=== PATIENT | female | born 1975 | race Caucasian/White ===

== ENCOUNTER → 2019-12-09 10:51 | Outpatient (CLI) | payer OTHER, SELFPAY ==
--- NOTE | 2019-12-09 | DI.RAD.S_ITS ---
PROCEDURE: XR LUMBAR SPINE 2-3V INDICATIONS: rectal pain TECHNIQUE: 3 views of the lumbar spine were acquired. COMPARISON: [facility], CR, XR SACRUM COCCYX MIN 2V, 12/09/2019, 10:42. FINDINGS: Bones: 5 [id number] vertebrae are present. There is minimal retrolisthesis at L3-L4. Mild grade 1 anterolisthesis is seen at the L4-L5 level. There is otherwise normal bony alignment. No vertebral body compression fractures. No suspicious bony lesions. The disc heights are relatively well preserved. Endplate irregularity and sclerosis are seen at L4-5. Lower lumbar spine facet arthropathy is seen. Soft tissues: Overlying bowel gas pattern is normal. No suspicious soft tissue calcifications. IMPRESSION: Lower lumbar spine degenerative changes are seen, which are worst at the L4-5 level. If it would be helpful for clinical management decision making, please consider a dedicated lumbar spine MRI for further evaluation (assuming that there is no contraindication). Dictated by: Jimy Ortiz M.D. on 12/09/2019 at 11:57 Approved by: Jimy Ortiz M.D. on 12/09/2019 at 11:58
--- NOTE | 2019-12-09 | DI.RAD.S_ITS ---
PROCEDURE: XR SACRUM COCCYX MIN 2V INDICATIONS: rectal pain TECHNIQUE: 3 views of the sacrum and coccyx acquired. COMPARISON: [facility], CR, XR LUMBAR SPINE 2-3V, 12/09/2019, 10:42. FINDINGS: Bones: No fractures or dislocations. No suspicious bony lesions. Age-appropriate lower lumbar spine degenerative changes are noted. Soft tissues: Visualized bowel gas pattern is normal. No suspicious soft tissue densities. Pelvic phleboliths are incidentally noted. IMPRESSION: Normal plain films of the sacrum and coccyx. Dictated by: Jimy Ortiz M.D. on 12/09/2019 at 11:56 Approved by: Jimy Ortiz M.D. on 12/09/2019 at 11:56
== END ==
PROVIDERS: Family Provider Family Medicine; PCP Family Medicine; Referring Provider Family Medicine; Visit Provider Family Medicine
DX: K62.89 Other specified diseases of anus and rectum (principal); M47.816 Spondylosis without myelopathy or radiculopathy, lumbar region; M43.16 Spondylolisthesis, lumbar region
CPT/HCPCS: 72100; 72220

== ENCOUNTER 2020-01-06 09:45 | Outpatient (RCR) | payer OTHER, SELFPAY ==
--- NOTE | 2019-12-10 14:11 | PT.OIE ---
Current Diagnoses Other specified diseases of anus and rectum (12/09/19) Visit Care Team Role Provider Type Mariza Boogie MD Attending Provider Physician Family Provider Primary Care Provider Referring Provider Specialty: Family Practice Address: [address] [place] [address], [facility] Email: Physical Therapy Initial Evaluation PT-OP-A Visit Information Start: 12/09/19 09:44 Freq: Status: Active Protocol: Document 12/09/19 09:45 [facility] (Rec: 12/09/19 10:05 [facility] [id number]) Out-Patient Physical Therapy Visit Information Visit Information Visit Type Initial Evaluation Visit Start Time 09:45 Visit Stop Time 10:30 Total Visit Minutes 45 Visit Number 1 Evaluation Information Evaluation Date 12/09/19 PT-OP-B Current Condition Start: 12/09/19 09:44 Freq: Status: Active Protocol: Document 12/09/19 09:45 [facility] (Rec: 12/09/19 10:05 [facility] [id number]) Current Condition History of Current Condition Onset Date approx 3.5 years ago Current Complaints rectal pain, left side radiating pain History of Current Condition Kiersten is a 44 year old female with complaints of rectal pain and spasm with clitorally stimulated orgasm. She has a 5 year old daughter and reports her symptoms didn't start initially after post but a year and half later. She started using a diva cup around that time. The first time she experience pain it happened in respose to a clitoral orgasm. Pain is described as being in the rectum and anus and very intense. She reports the pain would follow her orgasm and then pain keep increasing for about a half hour. She has fainted from the intensity of the pain. If there is vaginal penetration with orgasm then the pain doesn't happen. She has experienced the pain x 3 times since then. It is only rectally and it will make her feel like she needs to have a bowel movement. She is a runner and sometimes her pain will come on running, if she stops and sits down the symptoms will stop. This has only happened a few times. Most recently she woke up with the sensation of the rectal pain as well as left sided sciatic symptoms and up her left side. She didn't pass out and eventually went back to sleep. She does have lower back pain that she has had for years. Vaginal , smooth , she did have some left sided pelvic pain and SI pain and did post PT which helped. At this point she is seeking PT consult as she does not want the pain to increase and when she woke up in the middle of the night with pain it alarmed her. Prior Treatments and Tests A spinal Xray was ordered. Future Testing and Treatments Planned MRI may be ordered for further work up Treatment Goals Patient/Caregiver Goals Kiersten's goals include decreasing c/o pelvic pain and preventing further episodes from occurring Prior Functional Status Baseline Function- ADL's Independent Baseline Function- Mobility Independent Current Functional Impairments (Reported) Functional Limitations- Other limited with running activities due to pelvic pain, rectal pain with clitoral orgasm, rectal spasms and sciatica waking her at night PT-OP-I Pelvic Floor Start: 12/09/19 09:44 Freq: Status: Active Protocol: Document 12/09/19 09:45 [facility] (Rec: 12/10/19 13:16 [facility] [id number]) Pelvic Floor Assessment Urine Pelvic Floor Surgery No Pelvic Clock Pelvic Clock 3-6 Guarding Contraction Ability Voluntary Contraction Weak Voluntary Relaxation Weak Manual Muscle Testing Left 3 Manual Muscle Testing Right 3 Manual Muscle Testing Anterior 3 Manual Muscle Testing Posterior 3 Muscle Endurance (Seconds) 5 Comments Pelvic Floor Comments Kiersten has guarding on the left side of her illiococcygeus, she has difficulting relaxing following a contraction as well as difficulty sustaining a contraction for more than 4- 5 seconds. PT-OP-J Posture/Palpation/Skin Start: 12/09/19 09:44 Freq: Status: Active Protocol: Document 12/09/19 09:45 [facility] (Rec: 12/10/19 13:19 [facility] [id number]) Palpation Assessment Location Two Palpation Location left SI joint and iliac crest Palpation Findings Tenderness Palpation Details tenderness to palpation at the left PSIS and iliac crest One Palpation Location left illiococcygeus Palpation Findings Muscle Guarding Palpation Details there is muscle guarding present on the left lateral wall of the levator ani from 3 -6, there was a region that felt like scar tissue to me on the left lateral wall that I called Dr. Boogie about. I am not sure if this could be irritating the pundendal neve or not? PT-OP-K Range of Motion Start: 12/10/19 13:34 Freq: Status: Active Protocol: Document 12/09/19 09:45 [facility] (Rec: 12/10/19 13:40 [facility] [id number]) Hip Goniometric Range of Motion Hip ROM Limitations Hip ROM Limitations Soft Tissue Tightness Comments left sided hip ER tightness, increased tightness in the left piriforms and obturator internus as compared to the right PT-OP-L Special Tests Start: 12/09/19 09:44 Freq: Status: Active Protocol: Document 12/09/19 09:45 [facility] (Rec: 12/10/19 13:24 [facility] [id number]) Special Tests Lumbar Spine Special Tests Straight Leg Raise Test Results slightly+ left Comments More dural tension found with SLR on the left Slump Test Results positive on the left Comments this brought on small amounts of dural tension,no reproduction of rectal sx PT-OP-Q Treatments Start: 12/09/19 09:44 Freq: Status: Active Protocol: Document 12/09/19 09:45 [facility] (Rec: 12/10/19 13:24 [facility] [id number]) Therapeutic Exercises Supine Exercises 3 Supine Exercise Name supine pelvic floor contract relax Reps/Minutes hold 5-10 seconds then relax 10-20 seconds 2 Supine Exercise Name happy baby Side bilateral Reps/Minutes 1-2 reps holding for 1-2 minutes each 1 Supine Exercise Name diaphragmatic breathing Reps/Minutes x 10 reps inhale 4 counts and exhale 6 counts Comments pt educated in pelvic floor/ diaphragmatic rhythm PT-OP-T Assessment and Plan Start: 12/09/19 09:44 Freq: Status: Active Protocol: Document 12/09/19 09:45 [facility] (Rec: 12/10/19 14:11 [facility] [id number]) Physical Therapy Assessment Rehab Potential Rehabilitation Potential Good Evaluation Complexity Number of Personal Factors/Comorbidities 0 Number of Body Systems Impaired 1-2 Clinical Presentation at Evaluation Stable Impairments Impairments Pain,Sensation,Soft Tissue Mobility,Strength Goals Three Impairment c/o rectal pain and spasm with Custodial Goal (LTG) Kiersten is no longer experiencing rectal pain and spams with running or with clitoral orgasm. LTG Duration 8 weeks Two Impairment Decreased endurance of the pelvic floor Custodial Goal (LTG) Kiersten is able to sustain a contraction of the levator ani for 10 seconds followed by 10 second relaxation for 10 reps without complaints of pain LTG Duration 8 weeks One Impairment Left sided iliococcygeus guarding and discoordination Short Term Goal (STG) Kiersten is educated on relaxed awareness of the pelvic floor and postural techniques to reduce pelvic floor tone with day to day activities. STG Duration 4 weeks Hvac/R Instructor Goal (LTG) Kiersten is able to fully relax her pelvic floor and has no tenderness to palpation on the left lateral wall of the levator ani LTG Duration 8 weeks Assessment Summary Assessment Kiersten presents to physical therapy today with c/o intermittent rectal pain and left sided radiating sciatic pain symptoms. Kiersten is 5 years post from a vaginal delivery. She reports having a vaginal delivery with no complications and only a few stitches. She began having symtoms of rectal pain approx a year post . The first time she experienced rectal pain was with clitoral stimulation and orgasm. She notes the pain began initially with orgasm and then progressed in intensity for approximately 1/2 hours. Kiersten states the pain was so intense that she fainted. Since then she has experienced this same symptom 3 times with clitoral orgasm. She reports a vaginal orgasm with penetration with her does not give her any symptoms of nerve pain. She has also experienced rectal symptoms with running and she will have to stop running and sit down to stop the pain. Recently and what brought her into the clinic for her symptoms was that she woke up in the middle of the night with rectal pain and c/o radiating pain all down her left LE. She states this eventually went away and she has not experienced this symptom yet again. With examination today, Kiersten has tightness on the left side of the levator ani from 3-6 on the pelvic clock as compared to her right. She has difficulty relaxing her levator ani following a contraction. She also has difficutly sustaining a contraction for greater than 4 -5 seconds with her levator ani on either side of the pelvic clock. She is limited with hip ER on the left and has tenderness at the left PSIS and pelvic crest. She did note following child she had PT for left sided SI pain symptoms. This did seem to get better but she notes she always has a low level of low back and SI pain. I also found a area of what felt like possibly scar tissue on the left lateral wall of the illiococcygeus on the left that I wanted Dr. Boogie to evaluate as well. Kiersten did have a slightly positive slump test and SLR test on the left as compared to her right so it does appear she has more dural tension on the left. I palpated medial to the ischial tuberosity on the left to test for pudendal nerve tenderness and this region did not reproduce pain. Kiersten would benefit from a rectal evaluation next visit to further evaluate her symptoms. It is possible the the brach off the pudendal nerve that goes to the clitoris (the dorsal nerve of the clitoris) is somehow creating tension on the rectal portion of the pudendal nerve with clitoral stimulation only. Treatment will focus on relaxing the guarding of the left side of the illiococcygeus, teaching Kiersten how to stretch her posterior pelvic floor, pelvic floor coordination and training to improve endurance without muscle guarding, SI stabilization exercises, improving hip ER on the left, and MFR techniques for the pelvic floor. I did start Kiersten today with diaphragmatic breathing exercises to help relax the pelvic floor, happy baby stretch for pelvic floor relaxation, and gently contract relax exercises. We will start her with EMG biofeedback for improved neuro awareness of her pelvic floor. Physical Therapy Plan Frequency and Duration Frequency of Treatment 1x/Week Duration of Treatment 8 Plan of Care Start Date 12/09/19 Plan of Care End Date 02/03/20 Therapeutic Interventions Therapeutic Interventions Home Exercise Program,Manual Therapy,Neuromuscular Re- education,Patient/Caregiver Education,Self-Care/Home Management,Soft Tissue Mobilization,Therapeutic Exercises Modalities Biofeedback Next Visit Focus/Plan Next Note Type Treatment Note Next Visit Plan Begin EMG biofeedback for neuro awareness of the pelvic floor and to help with resting tone, continue evaluation with rectal examination of the levator ani musculature
--- NOTE | 2019-12-16 10:51 | PT.OTN ---
Current Diagnoses Other specified diseases of anus and rectum (12/16/19) Physical Therapy Treatment Note PT-OP-A Visit Information Start: 12/09/19 09:44 Freq: Status: Active Protocol: Document 12/16/19 09:45 [facility] (Rec: 12/16/19 09:53 [facility] [id number]) Out-Patient Physical Therapy Visit Information Visit Information Visit Type Treatment Note Visit Start Time 09:00 Visit Stop Time 09:45 Total Visit Minutes 45 Visit Number 2 Evaluation Information Evaluation Date 12/09/19 PT-OP-B Current Condition Start: 12/09/19 09:44 Freq: Status: Active Protocol: Document 12/09/19 09:45 [facility] (Rec: 12/09/19 10:05 [facility] [id number]) Current Condition History of Current Condition Onset Date approx 3.5 years ago Current Complaints rectal pain, left side radiating pain History of Current Condition Kiersten is a 44 year old female with complaints of rectal pain and spasm with clitorally stimulated orgasm. She has a 5 year old daughter and reports her symptoms didn't start initially after post but a year and half later. She started using a diva cup around that time. The first time she experience pain it happened in respose to a clitoral orgasm. Pain is described as being in the rectum and anus and very intense. She reports the pain would follow her orgasm and then pain keep increasing for about a half hour. She has fainted from the intensity of the pain. If there is vaginal penetration with orgasm then the pain doesn't happen. She has experienced the pain x 3 times since then. It is only rectally and it will make her feel like she needs to have a bowel movement. She is a runner and sometimes her pain will come on running, if she stops and sits down the symptoms will stop. This has only happened a few times. Most recently she woke up with the sensation of the rectal pain as well as left sided sciatic symptoms and up her left side. She didn't pass out and eventually went back to sleep. She does have lower back pain that she has had for years. Vaginal , smooth , she did have some left sided pelvic pain and SI pain and did post PT which helped. At this point she is seeking PT consult as she does not want the pain to increase and when she woke up in the middle of the night with pain it alarmed her. Prior Treatments and Tests A spinal Xray was ordered. Future Testing and Treatments Planned MRI may be ordered for further work up Treatment Goals Patient/Caregiver Goals Kiersten's goals include decreasing c/o pelvic pain and preventing further episodes from occurring Prior Functional Status Baseline Function- ADL's Independent Baseline Function- Mobility Independent Current Functional Impairments (Reported) Functional Limitations- Other limited with running activities due to pelvic pain, rectal pain with clitoral orgasm, rectal spasms and sciatica waking her at night PT-OP-C Subjective Start: 12/09/19 09:44 Freq: Status: Active Protocol: Document 12/16/19 09:45 [facility] (Rec: 12/16/19 09:53 [facility] [id number]) OP-PT Subjective Patient Comments Patient Comments Pt reports she has been doing more breathing this week with diaphragm in mind, she reports it is hard to work up to 10 reps of her pelvic floor. The contraction is more difficult for her. PT-OP-I Pelvic Floor Start: 12/09/19 09:44 Freq: Status: Active Protocol: Document 12/16/19 10:50 [facility] (Rec: 12/16/19 10:50 [facility] [id number]) Pelvic Floor Assessment Pelvic Clock Inter-Rectal Assessment inter-rectal assessment today shows tightness along the coccy bone on the left side of the levator ani as compared to the right. PT-OP-J Posture/Palpation/Skin Start: 12/09/19 09:44 Freq: Status: Active Protocol: Document 12/09/19 09:45 [facility] (Rec: 12/10/19 13:19 [facility] [id number]) Palpation Assessment Location Two Palpation Location left SI joint and iliac crest Palpation Findings Tenderness Palpation Details tenderness to palpation at the left PSIS and iliac crest One Palpation Location left illiococcygeus Palpation Findings Muscle Guarding Palpation Details there is muscle guarding present on the left lateral wall of the levator ani from 3 -6, there was a region that felt like scar tissue to me on the left lateral wall that I called Dr. Boogie about. I am not sure if this could be irritating the pundendal neve or not? PT-OP-K Range of Motion Start: 12/10/19 13:34 Freq: Status: Active Protocol: Document 12/09/19 09:45 [facility] (Rec: 12/10/19 13:40 [facility] [id number]) Hip Goniometric Range of Motion Hip ROM Limitations Hip ROM Limitations Soft Tissue Tightness Comments left sided hip ER tightness, increased tightness in the left piriforms and obturator internus as compared to the right PT-OP-L Special Tests Start: 12/09/19 09:44 Freq: Status: Active Protocol: Document 12/09/19 09:45 [facility] (Rec: 12/10/19 13:24 [facility] [id number]) Special Tests Lumbar Spine Special Tests Straight Leg Raise Test Results slightly+ left Comments More dural tension found with SLR on the left Slump Test Results positive on the left Comments this brought on small amounts of dural tension,no reproduction of rectal sx PT-OP-Q Treatments Start: 12/09/19 09:44 Freq: Status: Active Protocol: Document 12/16/19 10:38 [facility] (Rec: 12/16/19 10:49 [facility] [id number]) Manual Therapy Treatment Soft Tissue Mobilization levator ani release on the left Body Location left sided levator ani release Comments tightness along the coccyx on the left as compared to the right as well as the coccygeus on the left Neuro Re-Education Treatment Other Activities 1 Details EMG biofeedback for pelvic floor neuro awareness Comments pt had a lot of muscle spasms but we had just finished her rectal exam so it may have been due to this. Average contraction is 9.1 uv with max of 45.3 uv and average rest of 4.1 uv. No pain with 10 second hold time. If pt performed hip IR bilaterally then this did decrease her resting tone. Self-Care/Home Management Treatment Education Other Education pt educated in use of a dilator for trigger point release and pelvic floor release PT-OP-T Assessment and Plan Start: 12/09/19 09:44 Freq: Status: Active Protocol: Document 12/16/19 10:38 [facility] (Rec: 12/16/19 10:49 [facility] [id number]) Physical Therapy Assessment Assessment Summary Assessment Today I did a rectal exam which really only showed tightness along the left side of the coccxy and Kiersten could tell this side was also tighter than the right. No other pain noted. EMG biofeedback was initiated with elevated resting tone and difficulty sustaining a pelvic floor contraction, trigger point release and MFR was performed in the levator ani on the left and pt was given a dilator for home use for trigger point release. Pt tolerated treatment well, no reproduction of nerve pain but pt did have back pain following her pelvic floor contractions. We talked about making the contractions gentle so that her back is not arching to try and help. Physical Therapy Plan Frequency and Duration Frequency of Treatment 1x/Week Duration of Treatment 8 Plan of Care Start Date 12/09/19 Plan of Care End Date 02/03/20 Therapeutic Interventions Therapeutic Interventions Home Exercise Program,Manual Therapy,Neuromuscular Re- education,Patient/Caregiver Education,Self-Care/Home Management,Soft Tissue Mobilization,Therapeutic Exercises Modalities Biofeedback Next Visit Focus/Plan Next Note Type Treatment Note Next Visit Plan reassess resting tone of the pelvic floor, trigger points and myofascial rightness on the left coccygeus. Work on endurance of the pelvic floor muscles
--- NOTE | 2019-12-23 13:56 | PT.OTN ---
Current Diagnoses Other specified diseases of anus and rectum (12/23/19) Physical Therapy Treatment Note PT-OP-A Visit Information Start: 12/09/19 09:44 Freq: Status: Active Protocol: Document 12/23/19 09:44 [facility] (Rec: 12/23/19 09:54 [facility] [id number]) Out-Patient Physical Therapy Visit Information Visit Information Visit Type Treatment Note Visit Start Time 09:45 Visit Stop Time 10:30 Total Visit Minutes 45 Visit Number 3 PT-OP-B Current Condition Start: 12/09/19 09:44 Freq: Status: Active Protocol: Document 12/09/19 09:45 [facility] (Rec: 12/09/19 10:05 [facility] [id number]) Current Condition History of Current Condition Onset Date approx 3.5 years ago Current Complaints rectal pain, left side radiating pain History of Current Condition Kiersten is a 44 year old female with complaints of rectal pain and spasm with clitorally stimulated orgasm. She has a 5 year old daughter and reports her symptoms didn't start initially after post but a year and half later. She started using a diva cup around that time. The first time she experience pain it happened in respose to a clitoral orgasm. Pain is described as being in the rectum and anus and very intense. She reports the pain would follow her orgasm and then pain keep increasing for about a half hour. She has fainted from the intensity of the pain. If there is vaginal penetration with orgasm then the pain doesn't happen. She has experienced the pain x 3 times since then. It is only rectally and it will make her feel like she needs to have a bowel movement. She is a runner and sometimes her pain will come on running, if she stops and sits down the symptoms will stop. This has only happened a few times. Most recently she woke up with the sensation of the rectal pain as well as left sided sciatic symptoms and up her left side. She didn't pass out and eventually went back to sleep. She does have lower back pain that she has had for years. Vaginal , smooth , she did have some left sided pelvic pain and SI pain and did post PT which helped. At this point she is seeking PT consult as she does not want the pain to increase and when she woke up in the middle of the night with pain it alarmed her. Prior Treatments and Tests A spinal Xray was ordered. Future Testing and Treatments Planned MRI may be ordered for further work up Treatment Goals Patient/Caregiver Goals Kiersten's goals include decreasing c/o pelvic pain and preventing further episodes from occurring Prior Functional Status Baseline Function- ADL's Independent Baseline Function- Mobility Independent Current Functional Impairments (Reported) Functional Limitations- Other limited with running activities due to pelvic pain, rectal pain with clitoral orgasm, rectal spasms and sciatica waking her at night PT-OP-C Subjective Start: 12/09/19 09:44 Freq: Status: Active Protocol: Document 12/23/19 09:44 [facility] (Rec: 12/23/19 09:54 [facility] [id number]) OP-PT Subjective Patient Comments Patient Comments HAS BEEN WORKING ON YOGA, THE DILATOR, the tighten and releasing. Kiersten feels she may be able to relax a little better but it is difficult to tell. She hasn't experienced any of the pain this week. PT-OP-I Pelvic Floor Start: 12/09/19 09:44 Freq: Status: Active Protocol: Document 12/16/19 10:50 [facility] (Rec: 12/16/19 10:50 [facility] [id number]) Pelvic Floor Assessment Pelvic Clock Inter-Rectal Assessment inter-rectal assessment today shows tightness along the coccy bone on the left side of the levator ani as compared to the right. PT-OP-J Posture/Palpation/Skin Start: 12/09/19 09:44 Freq: Status: Active Protocol: Document 12/09/19 09:45 [facility] (Rec: 12/10/19 13:19 [facility] [id number]) Palpation Assessment Location Two Palpation Location left SI joint and iliac crest Palpation Findings Tenderness Palpation Details tenderness to palpation at the left PSIS and iliac crest One Palpation Location left illiococcygeus Palpation Findings Muscle Guarding Palpation Details there is muscle guarding present on the left lateral wall of the levator ani from 3 -6, there was a region that felt like scar tissue to me on the left lateral wall that I called Dr. Boogie about. I am not sure if this could be irritating the pundendal neve or not? PT-OP-K Range of Motion Start: 12/10/19 13:34 Freq: Status: Active Protocol: Document 12/09/19 09:45 [facility] (Rec: 12/10/19 13:40 [facility] [id number]) Hip Goniometric Range of Motion Hip ROM Limitations Hip ROM Limitations Soft Tissue Tightness Comments left sided hip ER tightness, increased tightness in the left piriforms and obturator internus as compared to the right PT-OP-L Special Tests Start: 12/09/19 09:44 Freq: Status: Active Protocol: Document 12/09/19 09:45 [facility] (Rec: 12/10/19 13:24 [facility] [id number]) Special Tests Lumbar Spine Special Tests Straight Leg Raise Test Results slightly+ left Comments More dural tension found with SLR on the left Slump Test Results positive on the left Comments this brought on small amounts of dural tension,no reproduction of rectal sx PT-OP-Q Treatments Start: 12/09/19 09:44 Freq: Status: Active Protocol: Document 12/23/19 13:50 [facility] (Rec: 12/23/19 13:56 [facility] [id number]) Manual Therapy Treatment Soft Tissue Mobilization piriformis release Body Location piriformis release Comments STM/MFR along the borders of the sacral KENA and piriformis, right greater than left piriformis tightness. levator ani release on the left Body Location left sided levator ani release Comments tightness along the coccyx left side but this is reduced as compared to last visit Joint Mobilizations 2 Joint MET for sacral extension Neuro Re-Education Treatment Other Activities 1 Details EMG biofeedback for pelvic floor neuro awareness Comments Average contraction is 8.5 uv with max of 16.1 uv and average rest of 2.8 uv. No pain with 10 second hold time. SHe does get a little low back tightness towards the end PT-OP-T Assessment and Plan Start: 12/09/19 09:44 Freq: Status: Active Protocol: Document 12/23/19 13:50 [facility] (Rec: 12/23/19 13:56 [facility] [id number]) Physical Therapy Assessment Assessment Summary Assessment Improved resting tone today on EMG biofeedback, decreased pelvic floor guarding with internal exam, pt is tight along the left sacral KENA and piriformis as compared to the right. She did have improved hip ROM with her left hip today. I talked to Kiersten about added in piriformis stretches and self release with a tennis ball in the piriformis region Physical Therapy Plan Frequency and Duration Frequency of Treatment 1x/Week Duration of Treatment 8 Plan of Care Start Date 12/09/19 Plan of Care End Date 02/03/20 Therapeutic Interventions Therapeutic Interventions Home Exercise Program,Manual Therapy,Neuromuscular Re- education,Patient/Caregiver Education,Self-Care/Home Management,Soft Tissue Mobilization,Therapeutic Exercises Modalities Biofeedback Next Visit Focus/Plan Next Note Type Treatment Note Next Visit Plan review piriformis stretches, MFR over the left sacral KENA, piriformis, Eccentric control of the pelvic floor
--- NOTE | 2019-12-30 14:07 | PT.OTN ---
Current Diagnoses Other specified diseases of anus and rectum (12/30/19) Physical Therapy Treatment Note PT-OP-A Visit Information Start: 12/09/19 09:44 Freq: Status: Active Protocol: Document 12/30/19 09:44 [facility] (Rec: 12/30/19 09:55 [facility] [id number]) Out-Patient Physical Therapy Visit Information Visit Information Visit Type Treatment Note Visit Start Time 09:45 Visit Stop Time 10:30 Total Visit Minutes 45 Visit Number 4 PT-OP-B Current Condition Start: 12/09/19 09:44 Freq: Status: Active Protocol: Document 12/09/19 09:45 [facility] (Rec: 12/09/19 10:05 [facility] [id number]) Current Condition History of Current Condition Onset Date approx 3.5 years ago Current Complaints rectal pain, left side radiating pain History of Current Condition Kiersten is a 44 year old female with complaints of rectal pain and spasm with clitorally stimulated orgasm. She has a 5 year old daughter and reports her symptoms didn't start initially after post but a year and half later. She started using a diva cup around that time. The first time she experience pain it happened in respose to a clitoral orgasm. Pain is described as being in the rectum and anus and very intense. She reports the pain would follow her orgasm and then pain keep increasing for about a half hour. She has fainted from the intensity of the pain. If there is vaginal penetration with orgasm then the pain doesn't happen. She has experienced the pain x 3 times since then. It is only rectally and it will make her feel like she needs to have a bowel movement. She is a runner and sometimes her pain will come on running, if she stops and sits down the symptoms will stop. This has only happened a few times. Most recently she woke up with the sensation of the rectal pain as well as left sided sciatic symptoms and up her left side. She didn't pass out and eventually went back to sleep. She does have lower back pain that she has had for years. Vaginal , smooth , she did have some left sided pelvic pain and SI pain and did post PT which helped. At this point she is seeking PT consult as she does not want the pain to increase and when she woke up in the middle of the night with pain it alarmed her. Prior Treatments and Tests A spinal Xray was ordered. Future Testing and Treatments Planned MRI may be ordered for further work up Treatment Goals Patient/Caregiver Goals Kiersten's goals include decreasing c/o pelvic pain and preventing further episodes from occurring Prior Functional Status Baseline Function- ADL's Independent Baseline Function- Mobility Independent Current Functional Impairments (Reported) Functional Limitations- Other limited with running activities due to pelvic pain, rectal pain with clitoral orgasm, rectal spasms and sciatica waking her at night PT-OP-C Subjective Start: 12/09/19 09:44 Freq: Status: Active Protocol: Document 12/30/19 09:44 [facility] (Rec: 12/30/19 09:55 [facility] [id number]) OP-PT Subjective Patient Comments Patient Comments pt reports she was able to have a orgasm without pain, she has been working with the dilator and doing her stretches at home. Patient Reported Progress Improving PT-OP-I Pelvic Floor Start: 12/09/19 09:44 Freq: Status: Active Protocol: Document 12/16/19 10:50 [facility] (Rec: 12/16/19 10:50 [facility] [id number]) Pelvic Floor Assessment Pelvic Clock Inter-Rectal Assessment inter-rectal assessment today shows tightness along the coccy bone on the left side of the levator ani as compared to the right. PT-OP-J Posture/Palpation/Skin Start: 12/09/19 09:44 Freq: Status: Active Protocol: Document 12/09/19 09:45 [facility] (Rec: 12/10/19 13:19 [facility] [id number]) Palpation Assessment Location Two Palpation Location left SI joint and iliac crest Palpation Findings Tenderness Palpation Details tenderness to palpation at the left PSIS and iliac crest One Palpation Location left illiococcygeus Palpation Findings Muscle Guarding Palpation Details there is muscle guarding present on the left lateral wall of the levator ani from 3 -6, there was a region that felt like scar tissue to me on the left lateral wall that I called Dr. Boogie about. I am not sure if this could be irritating the pundendal neve or not? PT-OP-K Range of Motion Start: 12/10/19 13:34 Freq: Status: Active Protocol: Document 12/09/19 09:45 [facility] (Rec: 12/10/19 13:40 [facility] [id number]) Hip Goniometric Range of Motion Hip ROM Limitations Hip ROM Limitations Soft Tissue Tightness Comments left sided hip ER tightness, increased tightness in the left piriforms and obturator internus as compared to the right PT-OP-L Special Tests Start: 12/09/19 09:44 Freq: Status: Active Protocol: Document 12/09/19 09:45 [facility] (Rec: 12/10/19 13:24 [facility] [id number]) Special Tests Lumbar Spine Special Tests Straight Leg Raise Test Results slightly+ left Comments More dural tension found with SLR on the left Slump Test Results positive on the left Comments this brought on small amounts of dural tension,no reproduction of rectal sx PT-OP-Q Treatments Start: 12/09/19 09:44 Freq: Status: Active Protocol: Document 12/30/19 14:02 [facility] (Rec: 12/30/19 14:07 [facility] [id number]) Therapeutic Exercises Supine Exercises templates for eccentric control and lowering of the pelvic floor Supine Exercise Name eccentric lengthening of the pelvic floor muscles Reps/Minutes x 5 3 Supine Exercise Name supine pelvic floor contract relax Reps/Minutes hold x 10 seconds and relax x 10 seconds 2 Supine Exercise Name happy baby Side bilateral Reps/Minutes 1-2 reps holding for 1-2 minutes each Comments HEP 1 Supine Exercise Name diaphragmatic breathing Reps/Minutes x 10 reps inhale 4 counts and exhale 6 counts Comments pt educated in pelvic floor/ diaphragmatic rhythm Manual Therapy Treatment Soft Tissue Mobilization pt educated on self release for the piriformis with myofascial balls Body Location left piriformis Comments pt educated in self release with myofascial release balls piriformis release Body Location piriformis release Comments STM/MFR along the borders of the sacral KENA and piriformis, right greater than left piriformis tightness. Joint Mobilizations 2 Joint MET for sacral extension PT-OP-T Assessment and Plan Start: 12/09/19 09:44 Freq: Status: Active Protocol: Document 12/30/19 14:02 [facility] (Rec: 12/30/19 14:07 [facility] [id number]) Physical Therapy Assessment Assessment Summary Assessment Today Kiersten was able to relax to baseline on EMG biofeedback . She did not show guarding. No pain with contractions. She does get relief in her back with sacral mobilizations and this was done again today as well as showing her how to do a self release with the myofascial balls. No guarding in the levator ani today with palpation Physical Therapy Plan Next Visit Focus/Plan Next Note Type Treatment Note Next Visit Plan review piriformis stretches, MFR over the left sacral KENA, piriformis, Eccentric control of the pelvic floor
--- NOTE | 2020-01-06 14:22 | PT.OTN ---
Current Diagnoses Other specified diseases of anus and rectum (01/06/20) Physical Therapy Treatment Note PT-OP-A Visit Information Start: 12/09/19 09:44 Freq: Status: Active Protocol: Document 01/06/20 14:16 [facility] (Rec: 01/06/20 14:21 [facility] [id number]) Out-Patient Physical Therapy Visit Information Visit Information Visit Type Treatment Note Visit Start Time 09:45 Visit Stop Time 10:30 Total Visit Minutes 45 Visit Number 5 PT-OP-B Current Condition Start: 12/09/19 09:44 Freq: Status: Active Protocol: Document 12/09/19 09:45 [facility] (Rec: 12/09/19 10:05 [facility] [id number]) Current Condition History of Current Condition Onset Date approx 3.5 years ago Current Complaints rectal pain, left side radiating pain History of Current Condition Kiersten is a 44 year old female with complaints of rectal pain and spasm with clitorally stimulated orgasm. She has a 5 year old daughter and reports her symptoms didn't start initially after post but a year and half later. She started using a diva cup around that time. The first time she experience pain it happened in respose to a clitoral orgasm. Pain is described as being in the rectum and anus and very intense. She reports the pain would follow her orgasm and then pain keep increasing for about a half hour. She has fainted from the intensity of the pain. If there is vaginal penetration with orgasm then the pain doesn't happen. She has experienced the pain x 3 times since then. It is only rectally and it will make her feel like she needs to have a bowel movement. She is a runner and sometimes her pain will come on running, if she stops and sits down the symptoms will stop. This has only happened a few times. Most recently she woke up with the sensation of the rectal pain as well as left sided sciatic symptoms and up her left side. She didn't pass out and eventually went back to sleep. She does have lower back pain that she has had for years. Vaginal , smooth , she did have some left sided pelvic pain and SI pain and did post PT which helped. At this point she is seeking PT consult as she does not want the pain to increase and when she woke up in the middle of the night with pain it alarmed her. Prior Treatments and Tests A spinal Xray was ordered. Future Testing and Treatments Planned MRI may be ordered for further work up Treatment Goals Patient/Caregiver Goals Kiersten's goals include decreasing c/o pelvic pain and preventing further episodes from occurring Prior Functional Status Baseline Function- ADL's Independent Baseline Function- Mobility Independent Current Functional Impairments (Reported) Functional Limitations- Other limited with running activities due to pelvic pain, rectal pain with clitoral orgasm, rectal spasms and sciatica waking her at night PT-OP-C Subjective Start: 12/09/19 09:44 Freq: Status: Active Protocol: Document 01/06/20 14:16 [facility] (Rec: 01/06/20 14:21 [facility] [id number]) OP-PT Subjective Patient Comments Patient Comments Kiersten reports she went for a 45 minute run and did have rectal spasms occur. She stopped her run and it took about a hour for symptoms to calm down. PT-OP-I Pelvic Floor Start: 12/09/19 09:44 Freq: Status: Active Protocol: Document 12/16/19 10:50 [facility] (Rec: 12/16/19 10:50 [facility] [id number]) Pelvic Floor Assessment Pelvic Clock Inter-Rectal Assessment inter-rectal assessment today shows tightness along the coccy bone on the left side of the levator ani as compared to the right. PT-OP-J Posture/Palpation/Skin Start: 12/09/19 09:44 Freq: Status: Active Protocol: Document 12/09/19 09:45 [facility] (Rec: 12/10/19 13:19 [facility] [id number]) Palpation Assessment Location Two Palpation Location left SI joint and iliac crest Palpation Findings Tenderness Palpation Details tenderness to palpation at the left PSIS and iliac crest One Palpation Location left illiococcygeus Palpation Findings Muscle Guarding Palpation Details there is muscle guarding present on the left lateral wall of the levator ani from 3 -6, there was a region that felt like scar tissue to me on the left lateral wall that I called Dr. Boogie about. I am not sure if this could be irritating the pundendal neve or not? PT-OP-K Range of Motion Start: 12/10/19 13:34 Freq: Status: Active Protocol: Document 12/09/19 09:45 [facility] (Rec: 12/10/19 13:40 [facility] [id number]) Hip Goniometric Range of Motion Hip ROM Limitations Hip ROM Limitations Soft Tissue Tightness Comments left sided hip ER tightness, increased tightness in the left piriforms and obturator internus as compared to the right PT-OP-L Special Tests Start: 12/09/19 09:44 Freq: Status: Active Protocol: Document 12/09/19 09:45 [facility] (Rec: 12/10/19 13:24 [facility] [id number]) Special Tests Lumbar Spine Special Tests Straight Leg Raise Test Results slightly+ left Comments More dural tension found with SLR on the left Slump Test Results positive on the left Comments this brought on small amounts of dural tension,no reproduction of rectal sx PT-OP-Q Treatments Start: 12/09/19 09:44 Freq: Status: Active Protocol: Document 01/06/20 14:16 [facility] (Rec: 01/06/20 14:21 [facility] [id number]) Therapeutic Exercises Supine Exercises quick pelvic floor contractions Supine Exercise Name quick pelvic floor contractions Reps/Minutes 10 reps x 2 second hold time templates for eccentric control and lowering of the pelvic floor Supine Exercise Name eccentric lengthening of the pelvic floor muscles Reps/Minutes x 5 each 3 Supine Exercise Name supine pelvic floor contract relax Reps/Minutes hold x 10 seconds and relax x 10 seconds 2 Supine Exercise Name happy baby Side bilateral Reps/Minutes 1-2 reps holding for 1-2 minutes each Comments HEP 1 Supine Exercise Name diaphragmatic breathing Reps/Minutes x 10 reps inhale 4 counts and exhale 6 counts Comments pt educated in pelvic floor/ diaphragmatic rhythm PT-OP-R Modalities Start: 12/09/19 09:44 Freq: Status: Active Protocol: Document 01/06/20 14:21 [facility] (Rec: 01/06/20 14:22 [facility] [id number]) Spinal Traction Traction Treatment Lumbar Method Mechanical Patient Position Hooklying Force Applied (Pounds) 40 Duration of Treatment (Minutes) 12 Heating Pad Applied No Traction Treatment Comment hooklying with legs elevated to 90 degrees PT-OP-T Assessment and Plan Start: 12/09/19 09:44 Freq: Status: Active Protocol: Document 01/06/20 14:16 [facility] (Rec: 01/06/20 14:21 [facility] [id number]) Physical Therapy Assessment Assessment Summary Assessment Did a trial of lumbar traction today as Kiersten may be getting some nerve irritation from compression in the lumbar spine as well. Discusses laying over a exercise ball to open up her spine as well as running on the trails instead of pavement. Decreased muscle spasms of the pelvic floor and low back today when doing pelvic floor exercises Physical Therapy Plan Frequency and Duration Frequency of Treatment 1x/Week Duration of Treatment 8 Plan of Care Start Date 12/09/19 Plan of Care End Date 02/03/20 Therapeutic Interventions Therapeutic Interventions Home Exercise Program,Manual Therapy,Neuromuscular Re- education,Patient/Caregiver Education,Self-Care/Home Management,Soft Tissue Mobilization,Therapeutic Exercises Modalities Biofeedback Next Visit Focus/Plan Next Note Type Treatment Note Next Visit Plan review piriformis stretches, MFR over the left sacral KENA, piriformis, Eccentric control of the pelvic floor
--- NOTE | 2020-09-01 15:05 | PT.OPDS ---
Current Diagnoses Other specified diseases of anus and rectum (01/06/20) Visit Care Team Role Provider Type Mariza Boogie MD Attending Provider Physician Family Provider Primary Care Provider Referring Provider Specialty: Family Practice Address: [address] [place] [address], [facility] [address], [place], [address] Email: Visit Number Visit Number 5 Discharge Summary PT-OP-B Current Condition Start: 12/09/19 09:44 Freq: Status: Active Protocol: Document 12/09/19 09:45 [facility] (Rec: 12/09/19 10:05 [facility] [id number]) Current Condition History of Current Condition Onset Date approx 3.5 years ago Current Complaints rectal pain, left side radiating pain History of Current Condition Kiersten is a 44 year old female with complaints of rectal pain and spasm with clitorally stimulated orgasm. She has a 5 year old daughter and reports her symptoms didn't start initially after post but a year and half later. She started using a diva cup around that time. The first time she experience pain it happened in respose to a clitoral orgasm. Pain is described as being in the rectum and anus and very intense. She reports the pain would follow her orgasm and then pain keep increasing for about a half hour. She has fainted from the intensity of the pain. If there is vaginal penetration with orgasm then the pain doesn't happen. She has experienced the pain x 3 times since then. It is only rectally and it will make her feel like she needs to have a bowel movement. She is a runner and sometimes her pain will come on running, if she stops and sits down the symptoms will stop. This has only happened a few times. Most recently she woke up with the sensation of the rectal pain as well as left sided sciatic symptoms and up her left side. She didn't pass out and eventually went back to sleep. She does have lower back pain that she has had for years. Vaginal , smooth , she did have some left sided pelvic pain and SI pain and did post PT which helped. At this point she is seeking PT consult as she does not want the pain to increase and when she woke up in the middle of the night with pain it alarmed her. Prior Treatments and Tests A spinal Xray was ordered. Future Testing and Treatments Planned MRI may be ordered for further work up Treatment Goals Patient/Caregiver Goals Kiersten's goals include decreasing c/o pelvic pain and preventing further episodes from occurring Prior Functional Status Baseline Function- ADL's Independent Baseline Function- Mobility Independent Current Functional Impairments (Reported) Functional Limitations- Other limited with running activities due to pelvic pain, rectal pain with clitoral orgasm, rectal spasms and sciatica waking her at night PT-OP-C Subjective Start: 12/09/19 09:44 Freq: Status: Active Protocol: Document 01/06/20 14:16 [facility] (Rec: 01/06/20 14:21 [facility] [id number]) OP-PT Subjective Patient Comments Patient Comments Kiersten reports she went for a 45 minute run and did have rectal spasms occur. She stopped her run and it took about a hour for symptoms to calm down. PT-OP-I Pelvic Floor Start: 12/09/19 09:44 Freq: Status: Active Protocol: Document 12/16/19 10:50 [facility] (Rec: 12/16/19 10:50 [facility] [id number]) Pelvic Floor Assessment Pelvic Clock Inter-Rectal Assessment inter-rectal assessment today shows tightness along the coccy bone on the left side of the levator ani as compared to the right. PT-OP-J Posture/Palpation/Skin Start: 12/09/19 09:44 Freq: Status: Active Protocol: Document 12/09/19 09:45 [facility] (Rec: 12/10/19 13:19 [facility] [id number]) Palpation Assessment Location Two Palpation Location left SI joint and iliac crest Palpation Findings Tenderness Palpation Details tenderness to palpation at the left PSIS and iliac crest One Palpation Location left illiococcygeus Palpation Findings Muscle Guarding Palpation Details there is muscle guarding present on the left lateral wall of the levator ani from 3 -6, there was a region that felt like scar tissue to me on the left lateral wall that I called Dr. Boogie about. I am not sure if this could be irritating the pundendal neve or not? PT-OP-K Range of Motion Start: 12/10/19 13:34 Freq: Status: Active Protocol: Document 12/09/19 09:45 [facility] (Rec: 12/10/19 13:40 [facility] [id number]) Hip Goniometric Range of Motion Hip ROM Limitations Hip ROM Limitations Soft Tissue Tightness Comments left sided hip ER tightness, increased tightness in the left piriforms and obturator internus as compared to the right PT-OP-L Special Tests Start: 12/09/19 09:44 Freq: Status: Active Protocol: Document 12/09/19 09:45 [facility] (Rec: 12/10/19 13:24 [facility] [id number]) Special Tests Lumbar Spine Special Tests Straight Leg Raise Test Results slightly+ left Comments More dural tension found with SLR on the left Slump Test Results positive on the left Comments this brought on small amounts of dural tension,no reproduction of rectal sx PT-OP-T Assessment and Plan Start: 12/09/19 09:44 Freq: Status: Active Protocol: Document 09/01/20 15:04 [facility] (Rec: 09/01/20 15:05 [facility] [id number]) Physical Therapy Assessment Assessment Summary Assessment pt has not returned to PT since January 052019. She will be discharged at this time Physical Therapy Plan Discharge Physical Therapy Discharge Reasons No Longer Attending PT
== END 2020-01-06 10:45 ==
LOC: PHYS 09:45
PROVIDERS: Family Provider Family Medicine; PCP Family Medicine; Referring Provider Family Medicine; Visit Provider Family Medicine
DX: K62.89 Other specified diseases of anus and rectum (principal)
CPT/HCPCS: 97012; 97110; 97112; 97140; 97161; 97535

== ENCOUNTER → 2020-12-14 11:47 | Outpatient (CLI) | payer OTHER, SELFPAY ==
[2020-12-14 20:10] LABS: Luteinizing Hormone 34.2 mIU/mL
== END ==
PROVIDERS: Family Provider Family Medicine; PCP Family Medicine; Visit Provider Physician Assistant
DX: N92.6 Irregular menstruation, unspecified (principal)
CPT/HCPCS: 82670; 83001; 83002; 84443

== ENCOUNTER → 2020-12-27 13:02 | Outpatient (CLI) | payer OTHER, SELFPAY ==
[2020-12-27 19:37] LABS: Pregnancy Test Serum,Qual Negative (Negative)
[2020-12-27 19:40] LABS: Prolactin 8.7 ng/mL (3.0-18.6)
== END ==
PROVIDERS: Family Provider Family Medicine; PCP Family Medicine; Referring Provider Physician Assistant; Visit Provider Physician Assistant
DX: N91.2 Amenorrhea, unspecified (principal); N94.19 Other specified dyspareunia
CPT/HCPCS: 84146; 84703

== ENCOUNTER → 2021-06-16 14:12 | Outpatient (CLI) | payer OTHER, SELFPAY ==
[2021-06-17 07:36] LABS: HSV 2 IGG AB < 0.91 index (0.00-0.90); HSV1IGG < 0.91 index (0.00-0.90)
[2021-06-17 17:07] LABS: HSV I/II IgM <0.91 Ratio (0.00-0.90)
== END ==
PROVIDERS: Family Provider Family Medicine; PCP Physician Assistant; Referring Provider Physician Assistant; Visit Provider Physician Assistant
DX: Z11.3 Encounter for screening for infections with a predominantly sexual mode of transmission (principal)
CPT/HCPCS: 36415; 86694; 86695; 86696

== ENCOUNTER → 2022-05-12 13:16 | Outpatient (CLI) | payer OTHER, SELFPAY ==
--- NOTE | 2022-05-12 13:17 | DI.MG.S_ITS ---
BILATERAL DIGITAL SCREENING MAMMOGRAM 3D/2D WITH CAD: 05/12/2022 CLINICAL: Routine screening. Comparison is made to exams dated: 12/20/2020 mammogram, 11/17/2019 mammogram, and 08/19/2018 mammogram - Outside facility. Both breasts are heterogeneously dense, which may obscure small masses (category c / 51-75% glandular tissue). Current study was also evaluated with a Computer Aided Detection (CAD) system. No significant masses, calcifications, or other findings are seen in either breast. There has been no significant interval change. IMPRESSION: NEGATIVE There is no mammographic evidence of malignancy. A 1 year screening mammogram is recommended. Based on Tyrer-Cuzick model (a risk assessment model), the patient's lifetime risk is 23.6% and her 10 year risk is 4.6%. If a patient has an elevated risk, a more comprehensive evaluation should be considered and/or a referral to a genetic counselor. The [place] [employer], [employer] [place] [employer], and NCCN Guidelines advise the consideration of Breast MRI as an adjunct to screening mammography in patients whose Lifetime risk to develop breast cancer is 20% or higher. This exam was interpreted at Station ID: [id number]. NOTE: For mammograms, a report in lay terms will be sent to the patient. Approximately 15% of breast malignancies will not be visualized mammographically. In the management of a palpable breast mass, a negative mammogram must not discourage biopsy of a clinically suspicious lesion. Electronically Signed By: Deangelo momin/neftali:05/14/2022 09:47:42 letter sent: Normal Exam ACR BI-RADS Category 1: Negative 3341F
== END ==
PROVIDERS: Family Provider Family Medicine; PCP Physician Assistant; Referring Provider Physician Assistant; Visit Provider Physician Assistant
DX: Z12.31 Encounter for screening mammogram for malignant neoplasm of breast (principal)
CPT/HCPCS: 77063; 77067

== ENCOUNTER → 2023-05-17 14:44 | Outpatient (CLI) | payer OTHER, SELFPAY ==
--- NOTE | 2023-05-17 14:44 | DI.MG.S_ITS ---
BILATERAL DIGITAL SCREENING MAMMOGRAM 3D/2D WITH CAD: 05/17/2023 CLINICAL: Routine screening. Family history of breast cancer. Comparison is made to exams dated: 05/12/2022 mammogram - [facility], 12/20/2020 mammogram, and 11/17/2019 mammogram - Outside facility. There are scattered areas of fibroglandular density in both breasts (category b / 25%-50% glandular tissue). Current study was also evaluated with a Computer Aided Detection (CAD) system. No significant masses, calcifications, or other findings are seen in either breast. There has been no significant interval change. IMPRESSION: NEGATIVE There is no mammographic evidence of malignancy. A 1 year screening mammogram is recommended. Based on the Tyrer Cuzick model (a risk assessment model) the patient's lifetime risk is 16.0% and her 10 year risk is 3.2%. According to the ACR, ACS, and NCCN guidelines, an annual breast MRI exam along with mammogram is recommended if the patient's lifetime risk is 20% or greater. This exam was interpreted at Station ID: [id number]. NOTE: For mammograms, a report in lay terms will be sent to the patient. Approximately 15% of breast malignancies will not be visualized mammographically. In the management of a palpable breast mass, a negative mammogram must not discourage biopsy of a clinically suspicious lesion. Electronically Signed By: Maureen hameed/neftali:05/17/2023 16:00:15 letter sent: Normal Exam ACR BI-RADS Category 1: Negative 3341F
== END ==
PROVIDERS: Family Provider Family Medicine; PCP Physician Assistant; Referring Provider Physician Assistant; Visit Provider Physician Assistant
DX: Z12.31 Encounter for screening mammogram for malignant neoplasm of breast (principal); Z80.3 Family history of malignant neoplasm of breast; R92.323 Mammographic fibroglandular density, bilateral breasts
CPT/HCPCS: 77063; 77067

== ENCOUNTER → 2023-10-15 10:50 | Outpatient (CLI) | payer OTHER, SELFPAY ==
[2023-10-18 13:15] LABS: Fecal Immunochemical Test Negative (Negative)
== END ==
LOC: LAB 10-18 10:50
PROVIDERS: Family Provider Family Medicine; PCP Physician Assistant; Referring Provider Physician Assistant Medical; Visit Provider Physician Assistant Medical
DX: Z12.11 Encounter for screening for malignant neoplasm of colon (principal); Z13.6 Encounter for screening for cardiovascular disorders; Z13.0 Encounter for screening for diseases of the blood and blood-forming organs and certain disorders involving the immune mechanism; Z13.1 Encounter for screening for diabetes mellitus
CPT/HCPCS: 82274

== ENCOUNTER → 2023-10-16 10:04 | Outpatient (CLI) | payer OTHER, SELFPAY ==
[2023-10-16 20:05] LABS: Add Manual Diff / Slide Review NO; Basophils Absolute Auto 0 /uL (0-100); Basophils Percent Auto 0.6 % (0-2); Eosinophils Absolute Auto 100 /uL (0-450); Eosinophils Percent Auto 1.5 % (2-4); Hematocrit 34.4 % (36-46); Hemoglobin 11.8 g/dL (12.0-16.0); Lymphocytes Absolute Auto 1500 /uL (1100-4500); Lymphocytes Percent Auto 39.1 % (25-40); Mean Corpuscular HGB Conc 34.4 % (30-36); Mean Corpuscular Hemoglobin 30.5 PG (26-34); Mean Corpuscular Volume 88.7 fL (80-100); Monocytes Absolute Auto 300 /uL (0-900); Monocytes Percent Auto 7.7 % (3-14); Neutrophils Absolute Auto 1900 /uL (1500-7000); Neutrophils Percent Auto 51.1 % (50-75); Platelet Count 220 X10^3/uL (150-400); Red Blood Cell Count 3.88 X10^6/uL (4.0-5.2); Red Cell Distribution Width 13.8 % (11.6-14.8); White Blood Cell Count 3.8 X10^3/uL (4.5-11.0)
[2023-10-16 20:12] LABS: Alanine Aminotransferase 15 IU/L (<35); Albumin 4.6 g/dL (3.5-5.0); Albumin Globulin Ratio 1.6 (1.0-2.8); Alkaline Phosphatase 64 U/L (38-126); Aspartate Aminotransferase 25 IU/L (14-36); BUN Creatinine Ratio 15.7 (6-22); Bilirubin Total 0.8 mg/dL (0.2-1.3); Blood Urea Nitrogen 11 mg/dL (7-17); Calcium 9.4 mg/dL (8.4-10.2); Carbon Dioxide 27 mmol/L (22-32); Chloride 103 mmol/L (98-107); Cholesterol 197 mg/dL (140-199); Estimated Glomerular Filt Rate > 60 mL/min (>60); Globulin 2.8 g/dL (1.7-4.1); Glucose 92 mg/dL (70-100); HEMOLYSIS < 15 (0-50); Potassium 4.1 mmol/L (3.4-5.1); Sodium 137 mmol/L (137-145); Total Protein 7.4 g/dL (6.3-8.2); Triglycerides 56 mg/dL (35-150)
[2023-10-16 20:19] LABS: HDL Cholesterol 102 mg/dL (40-60); LDL Cholesterol Calculated 84 mg/dL (<100)
[2023-10-16 20:27] LABS: Follicle Stimulating Hormone 43.7 mIU/mL; Luteinizing Hormone 35.9 mIU/mL
[2023-10-16 20:42] LABS: TSH w/ Reflex to FT4 0.96 uIU/mL (0.47-4.68)
== END ==
PROVIDERS: Family Provider Family Medicine; PCP Physician Assistant; Referring Provider Physician Assistant Medical; Visit Provider Physician Assistant Medical
DX: Z12.11 Encounter for screening for malignant neoplasm of colon (principal); Z13.6 Encounter for screening for cardiovascular disorders; Z13.0 Encounter for screening for diseases of the blood and blood-forming organs and certain disorders involving the immune mechanism; Z13.1 Encounter for screening for diabetes mellitus; N91.2 Amenorrhea, unspecified
CPT/HCPCS: 80053; 80061; 83001; 83002; 84443; 85025

== ENCOUNTER → 2024-06-05 16:26 | Outpatient (CLI) | payer OTHER, SELFPAY ==
--- NOTE | 2024-06-05 16:27 | DI.MG.S_ITS ---
MM screening mammo BI: 06/05/2024. BI-RADS: 1 CLINICAL: 48-year old female for bilateral screening mammogram. Tyrer-Cuzick lifetime risk of 7.1%. No personal or first-degree family history of breast cancer. PRIOR EXAMS 05/17/2023, 05/12/2022. MAMMOGRAPHY TECHNIQUE: 2D and 3D (tomosynthesis) digital mammographic views obtained, with additional images as needed for full coverage. Current study was also evaluated with a Computer Aided Detection (CAD) system. DENSITY B. There are scattered areas of fibroglandular density. MAMMOGRAPHY FINDINGS Bilateral: No suspicious mass, asymmetry, microcalcification, or other abnormality seen. IMPRESSION: * No evidence of malignancy. RECOMMENDATIONS Bilateral * Annual screening mammography. OVERALL ASSESSMENT CATEGORY BI-RADS-1: Negative. The [employer] recommends annual screening mammography beginning at age 40 for women with average risk of breast cancer. ELECTRONICALLY SIGNED: Akhil Holcomb M.D. on 06/05/2024 at 10:21:34 PM PT Interpreting Station ID: [id number]
== END ==
PROVIDERS: Family Provider Family Medicine; PCP Physician Assistant; Referring Provider Physician Assistant; Visit Provider Physician Assistant
DX: Z12.31 Encounter for screening mammogram for malignant neoplasm of breast (principal)
CPT/HCPCS: 77063; 77067

== ENCOUNTER → 2024-11-13 10:20 | Outpatient (CLI) | payer OTHER, SELFPAY ==
[2024-11-13 18:49] LABS: Alanine Aminotransferase 15 IU/L (<35); Albumin 5.2 g/dL (3.5-5.0); Albumin Globulin Ratio 1.7 (1.0-2.8); Alkaline Phosphatase 71 U/L (38-126); Blood Urea Nitrogen 10 mg/dL (7-17); Calcium 9.8 mg/dL (8.4-10.2); Carbon Dioxide 25 mmol/L (22-32); Chloride 101 mmol/L (98-107); Cholesterol 199 mg/dL (140-199); Estimated Glomerular Filt Rate > 60 mL/min (>60); Globulin 3.0 g/dL (1.7-4.1); Glucose 87 mg/dL (70-99); HEMOLYSIS < 15 (0-50); Potassium 4.7 mmol/L (3.4-5.1); Sodium 139 mmol/L (137-145); Total Protein 8.2 g/dL (6.3-8.2); Triglycerides 50 mg/dL (35-150)
[2024-11-13 19:01] LABS: HEMOLYSIS < 15 (0-50); Iron 119 ug/dL (37-170)
[2024-11-13 19:04] LABS: HDL Cholesterol 135 mg/dL (40-60)
[2024-11-13 19:14] LABS: Add Manual Diff / Slide Review NO; Hematocrit 36.5 % (36-46); Hemoglobin 12.5 g/dL (12.0-16.0); Lymphocytes Absolute Auto 1100 /uL (1100-4500); Mean Corpuscular HGB Conc 34.2 % (30-36); Mean Corpuscular Hemoglobin 29.4 PG (26-34); Mean Corpuscular Volume 86.2 fL (80-100); Platelet Count 199 X10^3/uL (150-400)
[2024-11-13 19:18] LABS: Percent Iron Saturation 45 % (15-50); Total Iron Binding Capacity 265 ug/dL (265-497); Transferrin 260 mg/dL (206-381)
[2024-11-13 19:23] LABS: Ferritin 55 ng/mL (6-137)
[2024-11-13 19:25] LABS: TSH w/ Reflex to FT4 0.36 uIU/mL (0.47-4.68)
[2024-11-13 19:44] LABS: Vitamin B12 450 pg/mL (239-931)
[2024-11-13 19:51] LABS: Free T4, Direct Thyroxine 1.10 ng/dL (0.78-2.19)
== END ==
PROVIDERS: Family Provider Family Medicine; PCP Physician Assistant; Visit Provider Physician Assistant
DX: D64.9 Anemia, unspecified (principal); Z13.6 Encounter for screening for cardiovascular disorders; G93.31 Postviral fatigue syndrome; R53.83 Other fatigue
CPT/HCPCS: 80053; 80061; 82607; 82728; 83540; 83550; 84439; 84443; 85025

== ENCOUNTER → 2024-12-24 13:37 | Outpatient (CLI) | payer OTHER, SELFPAY ==
[2024-12-24 19:01] LABS: Hematocrit 34.8 % (36-46); Hemoglobin 11.9 g/dL (12.0-16.0); Mean Corpuscular HGB Conc 34.3 % (30-36); Mean Corpuscular Hemoglobin 30.1 PG (26-34); Mean Corpuscular Volume 87.9 fL (80-100); Platelet Count 228 X10^3/uL (150-400)
[2024-12-24 19:32] LABS: Band Neutrophils Percent 3.0 % (3-7); Basophils Percent Manual 1.0 % (0-1); Eosinophils Percent Manual 3.0 % (2-4); Lymphocytes Percent Manual 31.0 % (25-45); Monocytes Percent Manual 8.0 % (2-11); Neutrophils Absolute Manual 2394 /uL (3000-5900); Segmented Neutrophils Percent 54.0 % (38-70); Total Cells Counted 100
[2024-12-24 19:43] LABS: Free T3, Triiodothyronine Free 3.62 pg/mL (2.77-5.27)
[2024-12-24 19:44] LABS: RBC Morphology Normal Morphology
[2024-12-24 19:58] LABS: TSH w/ Reflex to FT4 0.40 uIU/mL (0.47-4.68)
[2024-12-24 20:24] LABS: Free T4, Direct Thyroxine 1.04 ng/dL (0.78-2.19)
== END ==
PROVIDERS: Family Provider Family Medicine; PCP Physician Assistant; Visit Provider Physician Assistant
DX: D72.819 Decreased white blood cell count, unspecified (principal); E05.90 Thyrotoxicosis, unspecified without thyrotoxic crisis or storm
CPT/HCPCS: 84439; 84443; 84481; 85025; 86376